=== PATIENT | female | born 1970 | race Caucasian/White ===

== ENCOUNTER 2016-10-23 11:31 | Emergency (ER) | payer OTHER ==
[~2016-10-23] VITALS: Ht 160 cm; Wt 59.6 kg
[~2016-10-23 11:31] MED LIST: CALC600T34 PO; CREON12 PO; INFL100P IV
[2016-10-23 11:38] VITALS: BP 121/82; PULSE 85; RESP 15; TEMP 98.3; O2SAT 98
[2016-10-23] MEDS ORDERED: PANC3600 PO (11:54)
[2016-10-23] MEDS ORDERED: CALC1TAB87 PO (11:54)
[2016-10-23] MEDS ORDERED: INFL100P IV (11:54)
--- NOTE | 2016-10-23 12:41 | PD ---
HPI Chief Complaint: Dizziness Time Seen by Provider: 11:51 Travel History International Travel<30 days: No Contact w/Intl Traveler<30days: No Traveled to known affect area: No History of Present Illness HPI So 45-year-old woman who presents to the emergency department complaining of vertigo and dizziness. Symptoms been ongoing for the past 6 days or so. She describes room spinning sensation, with nausea. Symptoms are wall she was at work. She wasn't feeling quite right when she went into work that day. She states symptoms are constant, but 10 to be worse when she moves her head in certain directions or if she gets up and walks around too quickly. She was seen in urgent care was given a prescription for azithromycin, Zofran, meclizine that she feels like the meclizine and Zofran make her sleepy so she hasn't been taking them. She is a history of ulcerative colitis, she is on Remicade, and she went for routine follow-up with her GI doctor yesterday who examined her. She states after examining her abdomen she's had worsening nausea and vomiting. Symptoms persisted today so she came to the emergency department. Denies tinnitus. No changes in her hearing or vision. No history of migraines. No history of previous similar episodes. No recent head injuries. 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 Tetanus Vaccination: Unknown Influenza Vaccination: Yes Para: 3 Social History Alcohol Use: No Tobacco Use: No Allergies-Medications (Allergen,Severity, Reaction): Coded Allergies: Codeine (Verified Allergy, Severe, ITCHING, 10/23/16) Dilaudid (Verified Allergy, Severe, TRIGGERS PANCREATIC ISSUES, 10/23/16) Percocet (Verified Allergy, Severe, ITCHING/RASH, 10/23/16) Tylenol (Verified Allergy, Severe, INCREASED LIVER ENZYMES, 10/23/16) Vancomycin (Verified Allergy, Severe, HEAD PRESSURE, FLUSHING, 10/23/16) Cipro (Verified Allergy, Unknown, unknown, 10/23/16) Reported Meds & Prescriptions Reported Meds & Active Scripts Active Meclizine (Meclizine HCl) 25 Mg Tab 25 Mg PO TID PRN Zofran Odt (Ondansetron Odt) 4 Mg Tab 4 Mg SL Q8HR PRN May substitute non-ODT form. Reported Creon (Pancrelipase) 36,000-114,000-180,000 Units Cap 1 Cap PO TIDPC Remicade Inj (Infliximab) 100 Mg Inj Unknown Dose IV MONTHLY [id number] Calcium 600 with Vitamin D (Calcium Carbonate-Cholecalciferol) 600-400 mg-Unit Tab 1 Tab PO BID Review of Systems Except as stated in HPI: all other systems reviewed are Neg Physical Exam Narrative GENERAL: Well-appearing 45-year-old woman, no acute distress. SKIN: Focused skin assessment warm/dry. EYES: Pupils equal and round. No scleral icterus. No injection or drainage. No significant nystagmus. Full EOMs. ENT: No nasal bleeding or discharge. Mucous membranes pink and moist. NECK: Trachea midline. No meningismus. CARDIOVASCULAR: Regular rate and rhythm. No murmur appreciated. RESPIRATORY: No accessory muscle use. Clear to auscultation. Breath sounds equal bilaterally. GASTROINTESTINAL: Abdomen soft, non-tender, nondistended. Hepatic and splenic margins not palpable. MUSCULOSKELETAL: No obvious deformities. No clubbing. No cyanosis. No edema. NEUROLOGICAL: Awake and alert. No obvious cranial nerve deficits. Motor grossly within normal limits. Normal finger to nose. Normal [id number]. Negative [place]-Hallpike. Normal speech. Data Data Last Documented VS Vital Signs Date Time Temp Pulse Resp B/P Pulse Ox O2 Delivery O2 Flow Rate FiO2 10/23/16 13:12 81 16 120/76 99 10/23/16 11:55 Room Air 10/23/16 11:38 98.3 Orders Meclizine (Antivert) (10/23/16 12:45) Ondansetron Odt (Zofran Odt) (10/23/16 12:45) MDM Medical Decision Making Medical Screen Exam Complete: Yes Emergency Medical Condition: Yes Differential Diagnosis Vestibular neuritis, cerebellar migraine, stroke, dural vein thrombosis, Mnire 's disease, gastritis, other Narrative Course Medical decision making 45-year-old woman with vertigo for 6 days so she would nausea vomiting. She has just had routine labs done because she is on Remicade. She looks well. She has a normal neurologic exam. She does have a family history of factor V Leiden, and she had a previous IJ thrombosis setting of a central line. She does not however have any evidence of dural vein thrombosis. No headache. I don't think that this is the cause of her symptoms. She likely is vestibular neuritis. She refused steroids because of her stomach previously at the urgent care. I think at this point she should continue supportive treatment. If she develops any new neurologic symptoms, or headache, she will need an MRI. Otherwise continue supportive treatment. Diagnosis Primary Impression: Vertigo Additional Instructions: Continue Zofran and meclizine as prescribed. Follow-up with her primary doctor Thursday for not feeling improved. Return to the emergency department for any numbness, tingling, weakness, headache, or any other new or worsening symptoms. Med/Other Pt SpecificInfo: No Change to Meds Scripts Meclizine 25 Mg Tab25 Mg PO TID PRN (VERTIGO) #15 TAB Prov:Lobito Urbina MD 10/23/16 Ondansetron Odt (Zofran Odt)4 Mg Tab4 Mg SL Q8HR PRN (Nausea/Vomiting) #15 TAB May substitute non-ODT form. Prov:Lobito Urbina MD 10/23/16 Disposition: 01 DISCHARGE HOME Condition: Stable Lobito Urbina MD Oct 23, 2016 12:40
[2016-10-23] MEDS ORDERED: MECLIZINE HCL 25 MG TAB PO ONE (12:45)
[2016-10-23] MEDS ORDERED: ONDANSETRON ODT 4 MG TAB PO ONE (12:45)
[2016-10-23] MEDS ORDERED: MECL-62 PO (12:54)
[2016-10-23] MEDS ORDERED: ZOFR4TAB3 SL (12:54)
[2016-10-23 13:12] VITALS: BP 120/76
== END 2016-10-23 13:12 | disposition home or self-care (01) ==
LOC: PHED 11:31
DX: R42 Dizziness and giddiness (principal)
CPT/HCPCS: 99283